=== PATIENT | female | born 1975 | race African-American/Black ===

== ENCOUNTER → 2021-04-07 10:30 | Outpatient (CLI) | payer OTHER, SELFPAY ==
--- NOTE | ~2021-04-07 | CT_ITS ---
EXAMINATION: CT sinus wo con DATE: 04/07/2021 12:19 INDICATION: Chronic maxillary sinusitis TECHNIQUE: Computed tomography (CT) of the paranasal sinuses was performed without intravenous contra st. The dose-length product was 315.40 mGy-cm. Automated exposure control and iterative reconstructio n technique were employed. COMPARISON: CT dated 08/31/2012 FINDINGS: There is a large polypoid area of soft tissue in the right maxillary sinus, likely mucous r etention cysts versus mucosal thickening. There is mild mucosal thickening of the ethmoid air cells. Mastoids are pneumatized. Small right mastoid effusion. IMPRESSION: 1. Large area of polypoid soft tissue right maxillary sinus measuring up to 3.6 cm, likely mucus rete ntion cyst rather than mucosal thickening. 2: Mild ethmoid sinus disease. Reviewed, dictated and finalized at location A. IMPRESSION: 1. Large area of polypoid soft tissue right maxillary sinus measuring up to 3.6 cm, likely mucus retention cyst rather than mucosal thickening. 2: Mild ethmoid sinus disease.
== END ==
PROVIDERS: Visit Provider Otolaryngology
DX: J32.0 Chronic maxillary sinusitis (principal)
CPT/HCPCS: 70486

== ENCOUNTER → 2021-05-19 12:43 | Outpatient (CLI) | payer OTHER, SELFPAY ==
--- NOTE | ~2021-05-19 | MM_ITS ---
EXAMINATION: MM scrn palmira implant BI w adela HISTORY: Screening mammogram TECHNIQUE: Craniocaudal and mediolateral oblique 3-D tomosynthesis images with implant displacement a nd synthetic 2-D images were generated. Craniocaudal and mediolateral oblique views of the breasts wi thout implant displacement were obtained using full field digital mammography. CAD analysis was submi tted and interpreted. COMPARISON: No prior mammogram is available for comparison at this institution. BREAST PARENCHYMAL COMPOSITION: The breasts are heterogenously dense, which may obscure small masses FINDINGS: There is no evidence of suspicious mass, calcification, or architectural distortion to sugg est malignancy in either breast. There has been no suspicious interval change. IMPRESSION: 1. No mammographic evidence of malignancy. 2. Recommend routine screening mammography in one year. BI-RADS Category 1: Negative Reviewed, dictated and finalized at location A.
== END ==
PROVIDERS: Visit Provider Obstetrics & Gynecology
DX: Z12.31 Encounter for screening mammogram for malignant neoplasm of breast (principal)
CPT/HCPCS: 77063; 77067

== ENCOUNTER 2021-06-18 00:11 | Emergency (ER) | payer OTHER, SELFPAY ==
--- NOTE | ~2021-06-18 | CT_ITS ---
EXAMINATION: CT abdomen pelvis w con DATE: 06/18/2021 01:42 INDICATION: Abdominal pain TECHNIQUE: Computed tomography (CT) of the abdomen and pelvis was performed with 100 mL Omnipaque-350 intravenous contrast. Automated exposure control and iterative reconstruction technique were employe d. The dose-length product was 507.11 mGy-cm. COMPARISON: None FINDINGS: Small calcified granuloma at the left lower lobe. Heart size is normal. No pericardial or pleural eff usion. Bilateral breast implants. Liver, gallbladder, spleen, pancreas, bilateral adrenal glands and right kidney are normal. 2.5 cm left renal cyst. There are couple surgical clips in the left abdomen. No abnormal bowel wall thickening or obstruction. Normal appendix. 2.5 cm pedunculated fibroid arisi ng from the right side of the fundus. Bladder is normal. 1.3 cm right adnexal cyst/follicle. Left adn exa is unremarkable. Small amount of likely physiologic free fluid in the cul-de-sac. No pathological ly enlarged abdominal or pelvic lymphadenopathy. Bones are unremarkable. IMPRESSION: 1. No acute intra-abdominal/pelvic process. 2. 2.5 cm pedunculated uterine fibroid at the right side of the fundus. Reviewed, dictated and finalized at location A. ATTORNEY
[2021-06-18 00:22] VITALS: BP 121/69; PULSE 92; RESP 18; TEMP 36.5; O2SAT 98
[2021-06-18 01:01] LABS: Basophils Absolute Auto 0.1 K/mm3 (0.0-0.1); Basophils Percent Auto 0.9 % (0.2-1.2); Eosinophils Absolute Auto 0.1 K/mm3 (0-0.3); Eosinophils Percent Auto 1.6 % (0-4.4); Hematocrit 33.3 % (37.0-47.0); Hemoglobin 11.1 g/dL (12.0-15.0); Lymphocytes Percent Auto 34.1 % (18.3-44.2); Mean Corpuscular HGB Conc 33.3 g/dl (32-36); Mean Corpuscular Hemoglobin 28.6 pg (26-34); Mean Corpuscular Volume 85.8 fl (80-100); Mean Platelet Volume 11.1 fl (7.4-10.4); Monocytes Absolute Auto 0.5 K/mm3 (0.1-0.6); Monocytes Percent Auto 8.1 % (2.6-8.5); Neutrophils Absolute Auto 3.1 K/mm3 (1.3-6.7); Neutrophils Percent Auto 55.3 % (45.5-73.1); Platelet Count Result 218 k/mm3 (150-375); Red Blood Count 3.88 M/mm3 (4.2-5.4); Red Cell Distribution Width 14.6 % (11.5-14.5); White Blood Count 5.6 K/mm3 (4.5-10.0)
[2021-06-18] MEDS: SODIUM CHLORIDE 0.9% IV 1,000 ML 999 ML IV CONT (01:08)
[2021-06-18] MEDS: ONDANSETRON INJ 4 MG/2 ML VIAL IV PUSH (01:08)
[2021-06-18] MEDS: KETOROLAC 30 MG/ML VIAL (*BKC) (01:08)
[2021-06-18 01:11] LABS: Lactic Acid Reflex 1.6 mmol/L (0.7-2.1)
[2021-06-18 01:12] LABS: Alanine Aminotransferase 20 U/L (4-35); Albumin Level 4.5 g/dL (3.5-5.1); Alkaline Phosphatase 144 U/L (38-126); Anion Gap 13 mmol/L (8-16); Aspartate Amino Transferase 37 U/L (14-36); Bilirubin,Total 0.2 mg/dL (0.2-1.3); Blood Urea Nitrogen 14 mg/dL (7-17); Calcium 11.2 mg/dL (8.4-10.2); Carbon Dioxide 21 mmol/L (22-30); Chloride 105 mmol/L (98-107); Estimated CRCL calculation 61 ml/min; Estimated Glomerular Filt Rate > 60; Glucose 127 mg/dL (65-110); Lipase 294 U/L (23-300); Potassium 3.9 mmol/L (3.4-5.0); Sodium 139 mmol/L (137-145)
[2021-06-18 01:15] LABS: INR 1.4; Prothrombin Time 16.6 Seconds (11.1-14.7)
[2021-06-18 01:16] LABS: Partial Thromboplastin Time 31.4 SECONDS (22.3-36.8)
[2021-06-18 01:29] LABS: Add Urine Microscopic? NO; Appearance Urine Clear (Clear); Bilirubin Urine Negative (Negative); Blood Urine Negative (Negative); Color Urine Colorless (Yellow); Glucose Urine UA Negative (Negative); Ketones Urine Negative (Negative); Leukocyte Esterase Ur Negative LEU/UL (Negative); Nitrate Urine Negative (Negative); Protein Urine Negative (Negative); Urobilinogen Urine Negative mg/dL (<2.0)
[2021-06-18 01:31] LABS: Specific Grav Ur 1.003 (1.001-1.035)
[2021-06-18 02:08] VITALS: BP 127/79; PULSE 77; RESP 16; O2SAT 100
--- NOTE | 2021-06-18 03:32 | ED.GENADULT ---
HPI - General Adult General Chief complaint: Abdominal Pain Stated complaint: abd pain Time Seen by Provider: 06/18/21 00:27 History of Present Illness HPI narrative: Patient 45-year-old female presents emergency department chief complaint of abdominal pain. Patient reports that she started having cramping-like pain in her abdomen reports that she tried multiple different ways to try to calm down the discomfort took a hot bath on the patient states that she had difficulty urinating but when she got here she was able to urinate. The patient states that she has had no vomiting with it patient reports that she is currently on Eliquis and is concerned that she may have bleeding in her abdomen. Related Data Allergies Allergy/AdvReac Type Severity Reaction Status Date / Time hydromorphone [From Dilaudid] Allergy Anaphylaxis Verified 06/18/21 00:54 Review of Systems Review of Systems: A 10 system review of systems was completed on the patient and is negative except for what is stated in the HPI. Nursing and ancillary documentation was reviewed. Exam Narrative: GENERAL: Well-appearing, well-nourished, and in no acute distress. HEAD: Normocephalic, atraumatic. EYES: PERRLA and EOMI. ENT: Nares clear, no rhinorrhea or epistaxis. Mucous membranes moist. NECK: Supple. CHEST: Clear to auscultation. No respiratory distress. HEART: Regular rate and rhythm. No murmur heard. Normal peripheral pulses. ABDOMEN: Soft, nontender, nondistended, normal active bowel sounds. EXTREMITIES: Normal range of motion. No edema. SKIN: Warm, dry, no rash. NEURO: No focal deficits. Alert and oriented x3. PSYCH: Normal mood and affect. Course Course Emergency Course: CT scan showed no evidence of acute abdominal pathology but did show evidence of a moderate stool burden Vital Signs Vital signs: Vital Signs Temperature 36.5 C 06/18/21 00:22 Pulse Rate 92 06/18/21 00:22 Respiratory Rate 18 06/18/21 00:22 Blood Pressure 121/69 06/18/21 00:22 Pulse Oximetry 98 06/18/21 00:22 Temperature 36.5 C 06/18/21 00:22 Pulse Rate 77 06/18/21 02:08 Respiratory Rate 16 06/18/21 02:08 Blood Pressure 127/79 06/18/21 02:08 Pulse Oximetry 100 06/18/21 02:08 Medical Decision Making Vital Signs Vital Signs: Vital Signs Temperature 36.5 C 06/18/21 00:22 Pulse Rate 92 06/18/21 00:22 Respiratory Rate 18 06/18/21 00:22 Blood Pressure 121/69 06/18/21 00:22 Pulse Oximetry 98 06/18/21 00:22 Temperature 36.5 C 06/18/21 00:22 Pulse Rate 77 06/18/21 02:08 Respiratory Rate 16 06/18/21 02:08 Blood Pressure 127/79 06/18/21 02:08 Pulse Oximetry 100 06/18/21 02:08 Lab Data Result diagrams: 06/18/21 00:51 06/18/21 00:51 Labs: Lab Results 06/18/21 06/18/21 06/18/21 Range/Units 00:51 00:51 00:51 WBC 5.6 (4.5-10.0) K/mm3 RBC 3.88 L (4.2-5.4) M/mm3 Hgb 11.1 L (12.0-15.0) g/dL Hct 33.3 L (37.0-47.0) % MCV 85.8 (80-100) fl MCH 28.6 (26-34) pg MCHC 33.3 (32-36) g/dl RDW 14.6 H (11.5-14.5) % Plt Count 218 (150-375) k/mm3 MPV 11.1 H (7.4-10.4) fl Immature Gran % (Auto) 0.0 (0-0.5) % Neut % (Auto) 55.3 (45.5-73.1) % Lymph % (Auto) 34.1 (18.3-44.2) % [place] % (Auto) 8.1 (2.6-8.5) % Eos % (Auto) 1.6 (0-4.4) % Baso % (Auto) 0.9 (0.2-1.2) % Lymph # (Auto) 1.90 (0.9-3.2) K/mm3 [place] # (Auto) 0.5 (0.1-0.6) K/mm3 Eos # (Auto) 0.1 (0-0.3) K/mm3 Baso # (Auto) 0.1 (0.0-0.1) K/mm3 Abs Immat Gran (auto) 0.00 (0.00-0.031) K/mm3 Absolute Neuts (auto) 3.1 (1.3-6.7) K/mm3 Absolute Nucleated RBC 0.0 (0.0-0.012) K/mm3 Nucleated RBC % 0.0 (0.0-0.2) % PT 16.6 H (11.1-14.7) Seconds INR 1.4 APTT 31.4 (22.3-36.8) SECONDS Sodium (137-145) mmol/L Potassium (3.4-5.0) mmol/L Chloride (98-107) mmol/L Carbon Dioxide (22-30) mmol/L Anion Gap
[2021-06-18 04:03] VITALS: BP 125/80; PULSE 85; RESP 16; O2SAT 100
[2021-06-18] MEDS: MAGNESIUM CITRATE 300 ML BTL PO (04:04)
== END 2021-06-18 04:13 | disposition home or self-care (01) ==
PROVIDERS: Emergency Provider Emergency Medicine
DX: R10.84 Generalized abdominal pain (principal); K59.00 Constipation, unspecified
CPT/HCPCS: 36415; 74177; 80053; 81003; 83605; 83690; 85025; 85610; 85730; 96361; 96374; 96375; 99284; A9270; J1885; J2405; J7030; Q9967

== ENCOUNTER → 2021-12-01 09:36 | Outpatient (CLI) | payer OTHER, SELFPAY ==
--- NOTE | ~2021-12-01 | XR_ITS ---
EXAMINATION: XR chest 2V 12/01/2021 10:27 INDICATION: Shortness of breath and dyspnea PROCEDURE: 2 view chest COMPARISON: 04/15/2018 FINDINGS: The lungs are clear. The cardiomediastinal silhouette is within normal limits. There are no pleural effusions. There is no pneumothorax suspected. IMPRESSION: 1: NO ACUTE CARDIOPULMONARY DISEASE. Reviewed, dictated and finalized at location A.
== END ==
DX: R06.02 Shortness of breath (principal); E78.5 Hyperlipidemia, unspecified
CPT/HCPCS: 71046